=== PATIENT | female | born 1960 | race Caucasian/White ===

== ENCOUNTER 2025-01-23 10:27 | Emergency (ER) | payer OTHER, MEDICAID ==
[~2025-01-23] VITALS: Ht 162.5 cm; Wt 63.5 kg
[2025-01-23] MEDS ORDERED: TRAZODONE50 MG PO (10:40)
[2025-01-23] MEDS ORDERED: BUPROPION HYDR150 M1 PO (10:40)
[2025-01-23] MEDS ORDERED: ATORVASTATIN CA20 M1 PO (10:40)
[2025-01-23] MEDS ORDERED: OMEPRAZOLE MAGN20 MG PO (10:41)
[2025-01-23] MEDS ORDERED: ALPRAZOLAM0.25 M2 PO (10:41)
[2025-01-23] MEDS ORDERED: MONTELUKAST SOD10 MG PO (10:41)
[2025-01-23] MEDS ORDERED: BUSPAR5 MG PO (10:42)
[2025-01-23] MEDS ORDERED: PAROXETINE HCL20 MG PO (10:42)
[2025-01-23] MEDS ORDERED: HYDROXYZINE HCL25 MG PO (10:42)
[2025-01-23] MEDS ORDERED: SILVER SULFADIAZINE 25 GM TUBE T ONE (10:50)
== END 2025-01-23 13:11 | disposition home or self-care (01) ==
LOC: ED 10:27
DX: T22.119A Burn of first degree of unspecified forearm, initial encounter (principal); T31.0 Burns involving less than 10% of body surface; F32.A Depression, unspecified; F41.9 Anxiety disorder, unspecified; K21.9 Gastro-esophageal reflux disease without esophagitis; E78.5 Hyperlipidemia, unspecified; Z88.5 Allergy status to narcotic agent; Z88.8 Allergy status to other drugs, medicaments and biological substances; X08.8XXA Exposure to other specified smoke, fire and flames, initial encounter; Y93.89 Activity, other specified; Y92.009 Unspecified place in unspecified non-institutional (private) residence as the place of occurrence of the external cause; Y99.8 Other external cause status

== ENCOUNTER 2025-05-22 17:15 | Emergency (ER) | payer OTHER, MEDICAID ==
[~2025-05-22] VITALS: Wt 59.0 kg
[~2025-05-22 17:15] MED LIST: ALPRAZOLAM0.25 M2 PO; ATORVASTATIN CA20 M1 PO; BUPROPION HYDR150 M1 PO; BUSPAR5 MG PO; HYDROXYZINE HCL25 MG PO; MONTELUKAST SOD10 MG PO; OMEPRAZOLE MAGN20 MG PO; PAROXETINE HCL20 MG PO; TRAZODONE50 MG PO
== END 2025-05-22 18:44 | disposition home or self-care (01) ==
LOC: ED 17:15
DX: S40.012A Contusion of left shoulder, initial encounter (principal); S09.90XA Unspecified injury of head, initial encounter; Z88.5 Allergy status to narcotic agent; Z79.899 Other long term (current) drug therapy; V89.2XXA Person injured in unspecified motor-vehicle accident, traffic, initial encounter; Y93.55 Activity, bike riding; Y92.488 Other paved roadways as the place of occurrence of the external cause; Y99.8 Other external cause status